=== PATIENT | female | born 1985 | race Two or more races ===

== ENCOUNTER → 2017-01-10 | Outpatient (CLI) | payer BC ==
[2017-01-10 10:00] LABS: Cholesterol 149 mg/dL (< 200); HDL Cholesterol 47 mg/dL (40-59); LDL Cholesterol 84 mg/dL (< 100); Triglycerides 191 mg/dL (< 150)
== END | disposition home or self-care (01) ==
LOC: LAB 08:46
PROVIDERS: ATTEND Specialist
DX: E28.2 Polycystic ovarian syndrome (principal)
CPT/HCPCS: 36415; 80061; 83001; 83002; 83525; 84146; 84403

== ENCOUNTER → 2017-01-20 | Outpatient (CLI) | payer BC | END | disposition home or self-care (01) | LOC: LAB 08:50 | PROVIDERS: ATTEND Specialist | DX: E28.2 Polycystic ovarian syndrome (principal) | CPT/HCPCS: 36415; 83036; 84702 ==

== ENCOUNTER → 2017-03-04 | Outpatient (CLI) | payer BC | END | disposition home or self-care (01) | LOC: LAB 08:24 | PROVIDERS: ATTEND Specialist | DX: N91.2 Amenorrhea, unspecified (principal); N93.9 Abnormal uterine and vaginal bleeding, unspecified | CPT/HCPCS: 36415; 84702 ==

== ENCOUNTER → 2017-06-13 | Outpatient (CLI) | payer BC | END | disposition home or self-care (01) | LOC: LAB 11:27 | PROVIDERS: ATTEND Physician Assistant | DX: N91.2 Amenorrhea, unspecified (principal) | CPT/HCPCS: 36415; 84702 ==